=== PATIENT | female | born 1965 | race Caucasian/White ===

== ENCOUNTER 2022-04-12 09:42 | Emergency (ER) | payer BC, SELFPAY ==
[2022-04-12] MEDS ORDERED: Acetaminophen 500 MG TAB ONE (10:56)
[2022-04-12] MEDS ORDERED: Boostrix 0.5 ML (Tdap) VIAL (>/=7 yrs of age) ONE (10:56)
== END 2022-04-12 11:44 | disposition home or self-care (01) ==
LOC: MADERS 09:42
DX: S22.32XA Fracture of one rib, left side, initial encounter for closed fracture (principal); S93.401A Sprain of unspecified ligament of right ankle, initial encounter; M51.86 Other intervertebral disc disorders, lumbar region; G57.30 Lesion of lateral popliteal nerve, unspecified lower limb; I10 Essential (primary) hypertension; F17.220 Nicotine dependence, chewing tobacco, uncomplicated; W01.0XXA Fall on same level from slipping, tripping and stumbling without subsequent striking against object, initial encounter; Z79.899 Other long term (current) drug therapy
CPT/HCPCS: 72131; 90471; 90715